=== PATIENT | female | born 1975 ===

== ENCOUNTER 2022-12-05 08:25 | Day surgery (SDC) | payer OTHER ==
[2022-12-05 08:54] VITALS: BMI 30.2
[2022-12-05] MEDS ORDERED: SOD FERRIC GLUC COMPLX/SUCROSE 250 MG in NA CHLORIDE 0.9% 250 ML IV ONE (09:00)
[2022-12-05 12:09] VITALS: BP 130/85; TEMP 98.2; O2SAT 100
== END 2022-12-05 11:18 | disposition home or self-care (01) ==
LOC: DS 08:25
PROVIDERS: ATTEND Nurse Practitioner Family
DX: D50.9 Iron deficiency anemia, unspecified (principal); E55.9 Vitamin D deficiency, unspecified; R73.03 Prediabetes; N92.6 Irregular menstruation, unspecified; I10 Essential (primary) hypertension; Z00.01 Encounter for general adult medical examination with abnormal findings
CPT/HCPCS: 96365; 96366; J2916; J7050